=== PATIENT | female | born 1975 | race Hispanic/Latino ===

== ENCOUNTER 2023-02-03 13:02 | Emergency (ER) | payer OTHER ==
[~2023-02-03] VITALS: Ht 152.4 cm; Wt 74.8 kg
[2023-02-03 13:03] VITALS: BP 151/89
[2023-02-03] MEDS ORDERED: METOCLOPRAMIDE 10 MG/2 ML VIAL IVP ONE (17:30)
[2023-02-03] MEDS ORDERED: MORPHINE 2 MG SYG IVP ONE (17:30)
[2023-02-03] MEDS ORDERED: LACTATED RINGERS 1000ML 1,000 ML IV ONE (17:30)
[2023-02-03] MEDS ORDERED: FAMOTIDINE 20MG TAB PO ONE (17:30)
[2023-02-03 17:34] LABS: BASOPHILS % (AUTO) 0.6 % (0.0-5.0); LYMPHOCYTES % (AUTO) 17.9 % (21.0-51.0); MEAN CORPUSCULAR HEMOGLOBIN 27.1 pg (27.0-33.0); MEAN CORPUSCULAR HGB CONC 31.2 g/dL (32.0-36.0); MEAN CORPUSCULAR VOLUME 86.9 fL (79-99); NEUTROPHILS % (AUTO) 72.9 % (40.0-77.0); PLATELET COUNT (AUTO) 287 K/uL (130-400); RED BLOOD CELL COUNT(AUTO) 4.72 MIL/uL (4.00-5.50); RED CELL DISTRIBUTION WIDTH 13.8 % (11.0-15.5); WHITE BLOOD COUNT (AUTO) 8.8 K/uL (4.8-10.8)
[2023-02-03 17:52] LABS: CREATININE 0.7 mg/dL (0.5-1.5)
[2023-02-03 18:02] LABS: ALBUMIN 3.9 g/dL (3.5-5.0); TOTAL PROTEIN, SERUM 7.5 g/dL (6.0-8.3)
[2023-02-03] MEDS ORDERED: DOCU-116 PO (21:36)
[2023-02-03] MEDS ORDERED: FAMO-136 PO (21:36)
== END 2023-02-03 21:58 | disposition home or self-care (01) ==
LOC: EDH 13:02
DX: R10.32 Left lower quadrant pain (principal); Z79.899 Other long term (current) drug therapy
CPT/HCPCS: 99285; 96374; 96361; 76705; 71045; 96375; 84484; 80053; 83690; 85025; 36415; 93005; J7120; J2270; J2765